=== PATIENT | female | born 1975 | race Caucasian/White ===

== ENCOUNTER → 2018-08-29 | Outpatient (CLI) | payer MEDICAID ==
[2018-08-29 12:24] LABS: Basophils % (A) 0 %; Eosinophils # (A) 0.1 k/uL (0-0.7); Eosinophils % (A) 1 %; HCT 40.3 % (34.0-46.0); HGB 13.2 gm/dL (11.4-16.0); Lymphocytes # (A) 1.4 k/uL (1.0-4.8); Lymphocytes % (A) 20 %; MCH 31.6 pg (25.0-35.0); MCHC 32.8 g/dL (31.0-37.0); MCV 96.3 fL (80.0-100.0); Mean Platelet Volume 7.2; Monocytes # (A) 0.4 k/uL (0-1.0); Monocytes % (A) 6 %; Neutrophils # (A) 4.9 k/uL (1.3-7.7); Neutrophils % (A) 71 %; Platelet Count 225 k/uL (150-450); RBC 4.18 m/uL (3.80-5.40); RDW 12.6 % (11.5-15.5); WBC 6.8 k/uL (3.8-10.6)
[2018-08-29 16:46] LABS: Hepatitis B Surface AB- Quant 19.6 mIU/mL
== END | disposition home or self-care (01) ==
LOC: LABWHC1 11:08
PROVIDERS: ATTEND Dermatology
DX: L40.0 Psoriasis vulgaris (principal); L40.59 Other psoriatic arthropathy
CPT/HCPCS: 36415; 82565; 84450; 84460; 85025; 86704; 86706; 87340

== ENCOUNTER → 2019-04-28 | Outpatient (CLI) | payer MEDICAID ==
[2019-04-28 12:40] LABS: Basophils # (A) 0.1 k/uL (0-0.2); Basophils % (A) 1 %; Eosinophils # (A) 0.1 k/uL (0-0.7); Eosinophils % (A) 2 %; HCT 43.8 % (34.0-46.0); HGB 14.1 gm/dL (11.4-16.0); Lymphocytes # (A) 1.8 k/uL (1.0-4.8); Lymphocytes % (A) 26 %; MCH 31.1 pg (25.0-35.0); MCHC 32.3 g/dL (31.0-37.0); MCV 96.4 fL (80.0-100.0); Mean Platelet Volume 6.9; Monocytes # (A) 0.4 k/uL (0-1.0); Monocytes % (A) 6 %; Neutrophils # (A) 4.5 k/uL (1.3-7.7); Neutrophils % (A) 65 %; Platelet Count 272 k/uL (150-450); RBC 4.55 m/uL (3.80-5.40); RDW 12.8 % (11.5-15.5); WBC 6.9 k/uL (3.8-10.6)
[2019-04-28 17:08] LABS: African American GFR (CKD) 104.7 (60.0-200.0)
== END | disposition home or self-care (01) ==
LOC: LABWHC1 11:42
PROVIDERS: ATTEND Dermatology
DX: L40.0 Psoriasis vulgaris (principal)
CPT/HCPCS: 36415; 82565; 84450; 84460; 85025

== ENCOUNTER → 2020-04-24 | Outpatient (CLI) | payer OTHER, MEDICAID ==
--- NOTE | 2020-04-24 15:10 | CT ---
EXAMINATION TYPE: CT angio chest DATE OF EXAM: 04/24/2020 COMPARISON: Chest CT December 29, 2010 HISTORY: chest pain, SOB CT DLP: 161.0 mGycm. Automated Exposure Control for Dose Reduction was Utilized. CONTRAST: CTA scan of the thorax is performed with IV Contrast, patient injected with 58cc mL of Isovue 370, pu lmonary embolism protocol. MIP Images are created on CT scanner and reviewed. FINDINGS: LUNGS: Dependent atelectasis bilateral lower lobes. No suspicious focal consolidation or groundglas s opacity. No concerning pulmonary nodules or masses. There is no pleural effusion or pneumothorax se en bilaterally. The tracheobronchial tree is patent. MEDIASTINUM: There is suboptimal study with some heterogeneity and contrast and left-sided heart with most dense contrast in SVC but no convincing CT evidence for acute pulmonary embolism. There are no greater than 1 cm hilar or mediastinal lymph nodes. No cardiomegaly or pericardial effusion is see n. OTHER: No additional significant abnormality is seen. IMPRESSION: Suboptimal study without CT evidence for acute pulmonary embolism. No suspicious acute pu lmonary process.
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
== END | disposition home or self-care (01) ==
LOC: RADCTMAIN 14:20
PROVIDERS: ATTEND Family Medicine
DX: M54.5 Low back pain (principal); R06.00 Dyspnea, unspecified
CPT/HCPCS: 72100; 72220; 71275; Q9967

== ENCOUNTER → 2020-05-22 | Outpatient (CLI) | payer OTHER, MEDICAID ==
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
== END | disposition home or self-care (01) ==
LOC: RADUSWWP 16:15
PROVIDERS: ATTEND Family Medicine
DX: R22.2 Localized swelling, mass and lump, trunk (principal); M79.89 Other specified soft tissue disorders

== ENCOUNTER → 2021-02-26 | Outpatient (CLI) | payer MEDICAID ==
--- NOTE | 2021-02-26 15:38 | US ---
EXAMINATION TYPE: US venous doppler duplex LE DATE OF EXAM: 02/26/2021 3:17 PM COMPARISON: NONE CLINICAL HISTORY: R60.0 Edema of lower extremities. Edema SIDE PERFORMED: Bilateral TECHNIQUE: The lower extremity deep venous system is examined utilizing real time linear array sonog aislinn with graded compression, doppler sonography and color-flow sonography. VESSELS IMAGED: Common Femoral Vein Deep Femoral Vein Greater Saphenous Vein * Femoral Vein Popliteal Vein Small Saphenous Vein * Proximal Calf Veins (* superficial vessels) Right Leg: Negative for DVT Left Leg: Negative for DVT IMPRESSION: 1. No evidence of deep venous thrombosis of the bilateral lower extremity veins.
== END | disposition home or self-care (01) ==
LOC: RADUSWWP 14:52
PROVIDERS: ATTEND Family Medicine
DX: R60.0 Localized edema (principal)
CPT/HCPCS: 93970

== ENCOUNTER → 2021-03-06 | Outpatient (CLI) | payer MEDICAID ==
--- NOTE | 2021-03-06 21:11 | CT ---
EXAMINATION TYPE: CT abdomen pelvis wo con DATE OF EXAM: 03/06/2021 COMPARISON: None INDICATION: Hx Malignant neoplasm of corpus uteri, pt c/o edema in lower extremities DLP: 305.70 mGycm, Automated exposure control for dose reduction was used. CONTRAST: 0 mL of Isovue 300. Study performed without Oral Contrast TECHNIQUE: Axial images were obtained from above the diaphragm to the pubic rami in the axial plane a t 5 mm thick sections. Reconstructed images are reviewed on the computer in the coronal plane. FINDINGS: Limited CT sections are obtained the lung bases. The lung bases are clear. CT ABDOMEN: Liver: Normal Spleen: Normal Pancreas: Normal Adrenal glands: The adrenal glands are normal. Gallbladder: Normal Kidneys: No masses are evident. No hydronephrosis is present. No cysts are present. No renal stone s are evident Aorta: Normal Inferior vena cava: Normal. CT PELVIS: Multiple diverticula are present throughout the ascending colon. Loops of bowel without contrast are unremarkable. Appendix: Not visualized. No abnormal inflammatory change or dilated tubular structures are evident. Urinary bladder: Decompressed with limited evaluation Genitourinary structures: Uterus and ovaries not identified. Osseous structures: No suspicious lytic or sclerotic lesions. Lymphadenopathy: There is a 1 cm left inguinal lymph node. A few shoddy lymph nodes are the periaorti c region IMPRESSIONS: 1. No suspicious changes to suggest recurrent or metastatic uterine neoplasm.
== END | disposition home or self-care (01) ==
LOC: RADCTMAIN 14:28
PROVIDERS: ATTEND Family Medicine
DX: Z85.42 Personal history of malignant neoplasm of other parts of uterus (principal)
CPT/HCPCS: 74176

== ENCOUNTER → 2021-04-28 | Outpatient (CLI) | payer MEDICAID | END | disposition home or self-care (01) | LOC: LABWHC1 10:40 | PROVIDERS: ATTEND Physician Assistant Medical | DX: L40.59 Other psoriatic arthropathy (principal); L40.0 Psoriasis vulgaris | CPT/HCPCS: 36415; 86480 ==

== ENCOUNTER → 2023-09-22 | Outpatient (CLI) | payer MEDICAID ==
--- NOTE | 2023-09-22 17:29 | P.SLEEP ---
History of Present Illness DATE: 09/22/2023 CONSULTATION/NEW PATIENT EVALUATION HISTORY OF PRESENT ILLNESS/SLEEP-WAKE EVALUATION: 48-year-old lady had been evaluated in the sleep center for possible obstructive sleep apnea hypopnea syndrome. Patient has history of obstructive sleep apnea hypopnea syndrome diagnosed in our in another institution, she is using sure CPAP equipment but continued to snore and to have multiple awakenings from sleep well using her CPAP. SLEEP SCHEDULE: Usually sleep schedule from 9 PM to 5 AM on weekdays and until around 68 AM on weekend. FALLING ASLEEP: Sometimes patient has difficulties with falling asleep, although no TV in bedroom. DURING SLEEP: Patient continued to snore while using her CPAP and has signific ant amount of movements during the night. She wakes up from sleep up to 5 times with 3 episodes of nocturia. Positive history of episodes of sleep walking. No history of hypnogogical hallucinations, sleep paralysis, or cataplexy. DURING THE DAY/WAKE STATE: In the morning patient wake up tired, has difficulties to pay attention, has problems with memory, concentration, irritability, depression, claustrophobia and episodes of anxiety. [place] sleepiness scale is 5. Usually patient doesn't take naps. PAST MEDICAL HISTORY: ADHD, psoriatic arthritis. PAST SURGICAL HISTORY: Partial hysterectomy, treatment for cervical cancer. MEDICATIONS: Adderall 30 mg once a day, Xanax 0.25 mg as needed. SOCIAL HISTORY: Positive history of smoking for about 20 years quit 5 years ago, alcohol consumption occasional. FAMILY HISTORY: Heart problems, sleep apnea. REVIEW OF SYSTEMS: Loud snoring, multiple awakenings from sleep. No fevers. No double vision. No recent chest pain. No shortness of breath. No abdominal pain. No bleeding episodes. No blood in urine. No seizure episodes. PHYSICAL EXAMINATION: GENERAL: A pleasant patient without any distress. VITAL SIGNS: BP 112/75 , HR 74 , RR 12 , weight 145.8 pounds, height 5 foot 6 inches, body mass index 23.5 . HEENT: PERRLA, EOMI. Evaluation of oropharynx showed tongue protrudes midline, low position of soft palate Mallampati 3. NECK: Supple. No JVD. Thyroid is not palpable. 14 inches in circumference. LUNGS: Clear to percussion and to auscultation. Good air exchange. No wheezing or rhonchi. HEART: S1, S2 regular. No murmurs, gallops or rubs. ABDOMEN: Soft and nontender. Bowel sounds are present. No organomegaly appreciated. EXTREMITIES: No clubbing or cyanosis. MANAGER IN HOME: Awake, alert, and oriented x3. Cranial nerves 2 to 7 intact. There is no fasciculation or atrophy noted. No focal deficits observed. ASSESSMENT: 1. Loud snoring, multiple awakenings from sleep, low position of soft palate Mallampati 3, history of obstructive sleep apnea. Obstructive sleep apnea hypopnea syndrome. 2. Significant amount of movements during the sleep, possibly periodic limb movements. 3. Restless leg symptoms. 4. History of ADHD. 5 status post partial hysterectomy with treatment of cervical cancer. 6 . History of sleep walking. 7. History of Psoriatic arthritis. 8. History of anxiety. 9 . History of sleep talking. PLAN: 1. Polysomnography for evaluation of patient's breathing during sleep and to check for possible periodic limb movements. 2. CPAP/BiPAP titration if sleep study confirms obstructive sleep apnea- hypopnea syndrome. 3. Preferable position during sleep on the side. 4. No driving if patient feels any sleepiness. Patient is aware of civil and criminal liability for unsafe driving. 5. Sleep hygiene with regular sleep time for at least 7.5-8 hours. 6. Watching weight. Thank you very much for referring this patient for consultation. Sincerely, Tulio Clay MD, PhD, FAASM. Diplomat of [employer], Sleep Medicine Board by [employer] Director Of Informatics of [facility] [place] Past Medical History Past Medical History: Cancer, Rheumatoid Arthritis (RA), Skin Disorder Additional Past Medical History / Comment(s): PSORIASIS ELBOWS & KNEES, HX. OVARIAN,CERVICAL,UTERINE CA, LUMP LT BREAST HAD BX( ASPIRATION?)DONE IN DR. ALCOCER'S OFFICE 02/21/15, RA IN FINGERS History of Any Multi-Drug Resistant Organisms: None Reported Past Surgical History: Hysterectomy Additional Past Surgical History / Comment(s): HYSTERECTOMY 2010 Past Anesthesia/Blood Transfusion Reactions: No Reported Reaction Additional Psychological History / Comment(s): HX ADD- - Past Family History Mother Family Medical History: No Reported History Medications and Allergies Home Medications Medication Instructions Recorded Confirmed Type Clobetasol Propionate/Emoll 1 applic TOPICAL DAILY PRN 02/22/15 02/26/15 History [Temovate Emollient 0.05% Crm] Dextroamphetamine/Amphetamine 10 mg PO BID 02/22/15 02/26/15 History [Adderall] HYDROcodone/APAP 5-325MG [[place] 5] 1 - 2 each PO Q4H PRN #20 tab 02/26/15 Rx Allergies Allergy/AdvReac Type Severity Reaction Status Date / Time No Known Allergies Allergy Verified 02/26/15 08:26 Sleep Note - Sleep Note Sleep Note: Temperature: Pulse Rate: Respiratory Rate: Blood Pressure: SpO2: Height: Weight: BMI: Neck Circumference:
== END ==
LOC: 3 N SLEEP 14:35
PROVIDERS: ATTEND Internal Medicine
DX: G47.33 Obstructive sleep apnea (adult) (pediatric) (principal); R06.83 Snoring; G25.81 Restless legs syndrome; F90.9 Attention-deficit hyperactivity disorder, unspecified type; F51.3 Sleepwalking [somnambulism]; L40.50 Arthropathic psoriasis, unspecified; F41.9 Anxiety disorder, unspecified; Z87.891 Personal history of nicotine dependence; Z90.710 Acquired absence of both cervix and uterus
CPT/HCPCS: 99211

== ENCOUNTER 2023-11-04 19:33 | Outpatient (CLI) | payer MEDICAID ==
--- NOTE | 2023-11-08 14:09 | P.PCN ---
Description of Procedure: POLYSOMNOGRAPHY REPORT PROCEDURE(S)/DATE(S): Polysomnography 11/04/2023 CLINICAL: Patient has been seen in the sleep center for evaluation of obstructive sleep apnea-hypopnea syndrome. Please see my consultation. Sleep study has been done for evaluation of patient breathing during the sleep. PROCEDURE: The standard montage for clinical polysomnography included the electroencephalogram, the electrooculogram, the mentalis surface electromyography and Lead II cardiography. The respiratory battery consisted of measurements of nasal/buccal air flow, pressure transducer measurements from nose, thoracic and/or abdominal effort and intercostal surface electromyography. Video monitoring has been done to check for any parasomnia events. Nocturnal oxyhemoglobin saturations were obtained by finger oximetry. Step-jaeger titration with positive airway pressure was utilized to control the respiratory events, if necessary. RESULTS: During the diagnostic sleep study sleep efficiency was decreased to 81.8% %. Latency to sleep onset was 10 min. Sleep architecture showed stage NI was normal 8.5 %, Delta sleep was normal 17.9 %, REM sleep was decreased to 10.6 %. Respiratory channel showed 2 obstructive apneas, 0 mixed apneas, 1 central apneas, 2 hypopneas with lowest oxygen level 89%. Total apnea hypopnea index was 0.8. Heart rate was in the range between 40 to and 57, average 47. EMG showed 7.1 periodic limb movements per hour with 4.0 micro-arousals per hour. IMPRESSIONS: 1. No significant respiratory abnormalities have been documented during the sleep study. 2. Very minimal amount of periodic limb movements, in normal range by today's criteria. 3. History of sleep walking. Please see other impressions from consultation PLAN: 1. I will see patient for follow-up visit to explain results of the test and recommendations 2. Please check iron profile including ferritin level. Low level of iron may increase the risk for periodic limb movements. 3. Sleep hygiene with regular time in bed for at least 7-1/2 hours. 4. No driving if feeling sleepiness. Thank you very much for allowing me to participate in the management of your patient. Sincerely, Tulio Clay MD, PhD, FAASM. Diplomat of [place] [employer], Sleep Medicine Board by [employer] Supervising Editor Trailer of [facility] [place]
== END 2023-11-05 05:50 | disposition home or self-care (01) ==
LOC: 3 N SLEEP 19:33
PROVIDERS: ATTEND Internal Medicine
DX: G47.33 Obstructive sleep apnea (adult) (pediatric) (principal); G47.61 Periodic limb movement disorder; F51.3 Sleepwalking [somnambulism]; Z87.891 Personal history of nicotine dependence
CPT/HCPCS: 95810

== ENCOUNTER → 2023-12-01 | Outpatient (CLI) | payer MEDICAID ==
--- NOTE | 2023-12-01 16:50 | P.PN ---
Subjective DATE: 12/01/2023 FOLLOW UP VISIT. Patient returned to sleep center for follow-up visit to discuss results of sleep test and following plan. I discuss results of sleep study this patient in details. No significant respiratory abnormalities have been documented during the sleep study. Normal oxygenation during the sleep. Previously patient has history of obstructive sleep apnea. Patient continued to use his CPAP equipment, which stopped her snoring, but she doesn't feel significant improvements while using CPAP. Patient continued to have multiple awakenings from sleep. Very minimal amount of periodic limb movements during the sleep study 7.1 times per hour. Patient continued to have restless leg symptoms. . [place] sleepiness scale is significantly increased to 13. MEDICATIONS:1. Adderall 30 mg once a day 2. Xanax 0.25 mg as needed During physical exam: GENERAL: A pleasant patient without any distress. VITAL SIGNS: BP 124/81, HR 54, RR 14, weight 146.6, temperature 97.3, oxygen saturation at room air 99%. HEENT: PERRLA, EOMI. NECK: Supple. No JVD. LUNGS: Clear to percussion and to auscultation. Good air exchange. No wheezing or rhonchi. HEART: S1, S2 regular. ABDOMEN: Soft and nontender. EXTREMITIES: No clubbing or cyanosis. SPD MANAGER: Awake, alert, and oriented x3. No focal deficit. Impressions: 1. No significant respiratory abnormalities have been documented during the sleep test, normal oxygenation during the sleep. 2. No significant amount of leg movements during the sleep. 3. History of sleep walking, presently according to patient possibly once a year. 4. Multiple awakenings from sleep. 5. History of ADHD. 6. Status post partial hysterectomy with treatment for cervical cancer. 7. History of anxiety. 8. History of psoriatic arthritis. Plan: 1. Patient will have treatment with clonazepam 0.5 mg 1-2 tablets at bedtime. 2. Sleep hygiene with regular time in bed for at least 8 hours. 3. Precautions related to driving. No driving if feel any sleepiness. Patient is aware about civil and criminal liability for unsafe driving, promised to follow recommendations. 4. Follow up visit in 4-6 months or earlier if patient has any problems. Thank you very much for allowing me to participate in the management of your patient. Tulio Clay MD, PhD, FAASM. Diplomat of [place] [employer], Sleep Medicine Board by [employer] Elevator Erector of [facility] [place]
== END ==
LOC: 3 N SLEEP 15:26
PROVIDERS: ATTEND Internal Medicine
DX: G47.8 Other sleep disorders (principal); F90.9 Attention-deficit hyperactivity disorder, unspecified type; F41.9 Anxiety disorder, unspecified; L40.50 Arthropathic psoriasis, unspecified; Z90.711 Acquired absence of uterus with remaining cervical stump; Z85.41 Personal history of malignant neoplasm of cervix uteri; Z87.891 Personal history of nicotine dependence

== ENCOUNTER → 2024-08-23 | Outpatient (CLI) | payer MEDICAID ==
[2024-08-23 10:16] LABS: Basophils # (A) 0.04 X 10*3/uL (0.00-0.10); Basophils % (A) 0.5 %; Eosinophils # (A) 0.09 X 10*3/uL (0.04-0.35); Eosinophils % (A) 1.2 %; HCT 41.2 % (37.2-46.3); HGB 13.4 g/dL (12.0-15.0); Lymphocytes # (A) 0.86 X 10*3/uL (0.90-5.00); Lymphocytes % (A) 11.4 %; MCH 30.2 pg (27.0-32.0); MCHC 32.5 g/dL (32.0-37.0); Mean Platelet Volume 10.3 FL (9.5-12.2); Monocytes # (A) 0.51 X 10*3/uL (0.20-1.00); Monocytes % (A) 6.8 %; NRBC Per 100 WBC 0 X 10*3/uL (0.00-0.01); Neutrophils # (A) 6.01 X 10*3/uL (1.80-7.70); Neutrophils % (A) 79.7 %; Platelet Count 250 X 10*3/uL (140-440); RBC 4.43 X 10*6/uL (4.10-5.20); WBC 7.54 X 10*3/uL (4.50-10.00)
[2024-08-23 11:00] LABS: % Iron Saturation 29.14 (12.00-45.00); ALT 8 U/L (8-44); AST 14 U/L (13-35); Albumin 4.4 g/dL (3.8-4.9); Albumin/Globulin Ratio 1.91 Ratio (1.60-3.17); Alkaline Phosphatase 65 U/L (41-126); Blood Urea Nitrogen 7.4 mg/dL (9.0-27.0); Calcium 9.6 mg/dL (8.7-10.3); Carbon Dioxide 26.2 mmol/L (21.6-31.8); Chloride 104 mmol/L (96-109); Chol/HDL Ratio 3.58 Ratio; Globulin 2.3 g/dL (1.6-3.3); Glucose 94 mg/dL (70-110); Iron 95 UG/DL (50-170); LDL Cholesterol,Calculated 100.7 mg/dL (0.0-131.0); Magnesium 1.7 mg/dL (1.5-2.4); Potassium 4.8 mmol/L (3.5-5.5); Sodium 139 mmol/L (135-145); Total Bilirubin 1.3 mg/dL (0.3-1.2); Total Iron Binding Capacity 326 UG/DL (228-460); Total Protein 6.7 g/dL (6.2-8.2)
== END | disposition home or self-care (01) ==
LOC: LABWHC1 07:29
PROVIDERS: ATTEND Family Medicine
DX: Z00.00 Encounter for general adult medical examination without abnormal findings (principal); G25.81 Restless legs syndrome
CPT/HCPCS: 36415; 80053; 80061; 82607; 82728; 82746; 83036; 83540; 83550; 83735; 84443; 85025